=== PATIENT | female | born 1945 | race Caucasian/White ===

== ENCOUNTER 2016-10-17 10:50 | Day surgery (SDC) | payer MEDICARE, OTHER ==
[~2016-10-17] VITALS: Ht 158.8 cm; Wt 66.0 kg
[~2016-10-17 10:50] MED LIST: 0.9% Sodium Chloride 1,000 ML IV PRN; METO-272 PO; SIMV20TA4 PO; Sodium Chloride LOK Flush 10 mL Syringe IV PRN; TRIA1TAB5 PO; fentaNYL-PF 50 mCg/mL 2 mL Inj IVPUSH PRN
[2016-10-17 11:25] VITALS: BP 121/71; PULSE 61; RESP 16; O2SAT 99
--- NOTE | 2016-10-17 13:25 | PCM.ENDCOL ---
Colonoscopy Date of Service: Oct 17, 2016 Physician Félix Weaver MD Pre Procedure Diagnosis: Screening Post Procedure Dx & Findings: Polyps hemorrhoids Procedure Colonoscopy Prep adequate Withdrawal 17 minutes PROCEDURE IN DETAIL: After unremarkable rectal examination this videocolonoscope was inserted patient 's anal canal. It was advanced to cecum. Landmarks are identified including the ileocecal valve and the appendiceal orifice. Scope was withdrawn systematically. The mucosa of the cecum, ascending, transverse, descending, sigmoid, rectal mucosa lined with whitish, pink, smooth, glistening, normal-appearing mucosa, normal fine branching, underlying vascularity, normal haustra. The patient tolerated procedure and was transported to observation area. In the transverse colon there was a 2 mm polyp which was removed completely using cold snare. However it appears to have disintegrated from the retrieval process. Therefore unable to retrieve. In the rectosigmoid area, there was a 1 cm polyp which was removed completely using hot snare. In the rectum retroflexion was done which showed hemorrhoids and mucosa inspected carefully on the way out and hemorrhoids noted. Impression Polyp 2 status post complete removal. The transverse colon polyp 2 mm in size was disintegrated. Able to retrieve the 1 cm polyp. Hemorrhoids Recommendation Repeat colonoscopy 3 years. Presedation Assessment Risks and Benefits Informed consent was obtained from the patient after all risks and benefits including but not limited to drug reaction, infection, pain, bleeding, perforation, as well as alternatives were discussed. Patient monitoring Continuous pulse oximetry, cardiac monitoring, blood pressure monitoring, IV access, and oxygen at 2L per nasal cannula. Periprocedural Fentanyl: Fentanyl 75mcg Incrementally Midazolam: Midazolam 4mg Incrementally Complications There were no periprocedural complications identified. Post Procedure Plan Post Procedure Recommendations 1. Restrict activities today. 2. Resume normal activities in the morning. 3. Resume medications. 4. Patient informed of normal post procedure side effects as bloating, drowsiness, blood streaking in the stool. 5. average risk CRCS. If colon polyps come back as: -Hyperplastic- can repeat colonoscopy in 10 years -Tubular adenoma- repeat colonoscopy in 5 years -Tubulovillous/villous adenoma- repeat colonoscopy in 3 years -If any dysplasia- return to clinic as soon as possible 6. Please don't hesitate to call me with any questions. Félix Weaver MD Oct 17, 2016 13:25
[2016-10-17 13:27] VITALS: BP 112/65; PULSE 60; RESP 16; O2SAT 96
[2016-10-17 13:37] VITALS: BP 104/57; PULSE 59; RESP 16; O2SAT 97
[2016-10-17 13:41] VITALS: BP 105/64; PULSE 65; RESP 16; O2SAT 99
--- NOTE | 2016-10-18 11:13 | PATH ---
SURGICAL PATHOLOGY Attending Physician:Félix Weaver M.D. CASE STATUS: Signed Out PATIENT NAME: ERIN HAILE PID: [id number] : 1945 DATE COLLECTED:10/17/2016 19:07 SPECIMEN: Colon, Biopsy CLINICAL HISTORY: RECTAL SIGMOID COLON POLYP X1 FINAL DIAGNOSIS: RECTOSIGMOID COLON POLYP: TUBULAR ADENOMA INVOLVING ALL BIOPSY FRAGMENTS. ICD10 CODE D12.7 GROSS DESCRIPTION: The specimen is received in one formalin filled container labeled with the patient's name, sublabeled "rectal sigmoid colon polyp" and consists of 3 portions of tissue which aggregate to 0.5 x 0.4 x 0.4 CM. The specimen is entirely submitted in one cassette. 10/17/2016 [facility] MICRO DESCRIPTION: See diagnosis. ICD-9 CODES: CPT CODES: 1: 73625 Electronically Signed Out Aly Head MD [facility] Pathology [facility] [address], [place] [address] Technical component performed at [facility], [facility] [address], [place], [address]
== END 2016-10-17 23:59 | disposition home or self-care (01) ==
LOC: END 10:50
PROVIDERS: ATTEND Internal Medicine
DX: Z12.11 Encounter for screening for malignant neoplasm of colon (principal); D12.7 Benign neoplasm of rectosigmoid junction; K64.8 Other hemorrhoids; Z86.010 Personal history of colon polyps; I10 Essential (primary) hypertension; E78.5 Hyperlipidemia, unspecified; M81.0 Age-related osteoporosis without current pathological fracture; R51 Headache; Z80.8 Family history of malignant neoplasm of other organs or systems
CPT/HCPCS: 45385; 88305; 99153; G0500; J2250; J3010; J7030